=== PATIENT | male | born 1955 | race Caucasian/White ===

== ENCOUNTER 2019-12-29 23:56 | Emergency (ER) | payer OTHER ==
[~2019-12-29] VITALS: Ht 152.4 cm; Wt 109.1 kg
[2019-12-30 00:05] VITALS: TEMP 97.7
[2019-12-30] MEDS ORDERED: ZYLOPRIM 100MG100 MG (00:15)
[2019-12-30] MEDS ORDERED: GLUCOPHAGE500 MG/TAB PO (00:16)
[2019-12-30] MEDS ORDERED: LASIX 80MG TABL80 MG PO (00:16)
[2019-12-30] MEDS ORDERED: NORMODYNE100 MG PO (00:16)
[2019-12-30] MEDS ORDERED: NEXIUM 20MG20 MG PO (00:16)
[2019-12-30] MEDS ORDERED: ASPIRIN 32325 MG/TAB PO (00:16)
[2019-12-30] MEDS ORDERED: FLEXERIL 1010 MG/TAB PO (01:29)
[2019-12-30] MEDS ORDERED: NAPROSYN500 MG PO (01:29)
[2019-12-30 01:41] VITALS: BP 117/75; PULSE 64
== END 2019-12-30 01:41 | disposition home or self-care (01) ==
LOC: COL.ER 23:56
DX: M54.5 Low back pain (principal); G89.29 Other chronic pain; E11.9 Type 2 diabetes mellitus without complications; I10 Essential (primary) hypertension; I25.10 Atherosclerotic heart disease of native coronary artery without angina pectoris; Z95.5 Presence of coronary angioplasty implant and graft; Z79.82 Long term (current) use of aspirin; Z79.84 Long term (current) use of oral hypoglycemic drugs
CPT/HCPCS: J1885